=== PATIENT | male | born 1935 | race African-American/Black ===

== ENCOUNTER 2017-02-03 17:59 | Inpatient (IN) | payer OTHER ==
[2017-02-03] MEDS ORDERED: HumuLIN R SUBCUT PRN (20:07)
[2017-02-03] MEDS ORDERED: TEFLARO 400 MG in NS 50 ML IV 50 ML IV SCH (21:00)
[2017-02-03 21:01] LABS: BASOPHILS # (AUTO) 0.1 X10^3/uL (0.0-0.1); BASOPHILS % (AUTO) 0.4 % (0.2-1.0); EOSINOPHILS # (AUTO) 0.1 x10^3/uL (0.0-0.2); EOSINOPHILS % (AUTO) 0.4 % (0.9-2.9); HEMATOCRIT 31.4 % (42.0-54.0); HEMOGLOBIN 10.4 g/dL (13.5-18.0); LYMPHOCYTES # (AUTO) 1.4 X10^3/uL (1.3-2.9); LYMPHOCYTES % (AUTO) 7.8 % (21.0-51.0); MEAN CORPUSCULAR VOLUME 84.7 fL (80.0-100.0); MEAN PLATELET VOLUME 9.9 fL (7.4-11.0); MONOCYTES # (AUTO) 1.2 x10^3/uL (0.3-0.8); MONOCYTES % (AUTO) 6.5 % (0.0-13.0); NEUTROPHILS # (AUTO) 15.5 x10^3/uL (2.2-4.8); NEUTROPHILS % (AUTO) 84.9 % (42.0-75.0); PLATELET COUNT 327 X10^3/uL (150.0-450.0); RED BLOOD COUNT 3.71 X10^6/uL (4.7-6.0); RED CELL DISTRIBUTION WIDTH 15.5 % (11.6-16.5); WHITE BLOOD COUNT 18.3 X10^3/uL (3.6-10.0)
[2017-02-03 21:42] LABS: ALBUMIN 2.5 g/dL (3.4-5.0); CALCIUM 8.8 mg/dL (8.5-10.1); CARBON DIOXIDE 18.9 mmol/L (21-32); CKMB % 2.3 % (<4); CREATININE 2.99 mg/dL (0.70-1.30); TOTAL PROTEIN 8.4 g/dL (6.4-8.2); TROPONIN I 1.02 ng/mL (0-1.5)
[2017-02-03 21:45] LABS: CREATINE KINASE MB 4.9 ng/mL (0-4.0)
--- NOTE | 2017-02-03 22:21 | RAD ---
HISTORY: Renal failure Study: Single view chest Comparison: None Findings: Single portable supine view is submitted. Lung volumes are reduced. No infiltrate, effusion or pneumo thorax identified. The cardiac and mediastinal contours are within normal limits. The soft tissues a re unremarkable. IMPRESSION: 1. Negative portable chest radiograph. Reported By:
[2017-02-03] MEDS: NORCO 5/325 MG TAB PO PRN (22:49)
[2017-02-03] MEDS: LEVAQUIN PREMIX IV 250 MG 250 MG/50 ML BAG IV SCH (23:00)
[2017-02-03] MEDS: TEFLARO IV SCH (23:00)
[2017-02-03] MEDS: NS IV SCH (23:00)
[2017-02-03] MEDS: NS 1000 ML 1,000 ML IV SCH (23:01)
--- NOTE | 2017-02-03 23:09 | DR.H&P ---
H&P - History & Physical for Day of: H&P Date: 02/03/17 - Chief Complaint Chief Complaint: Decreased appetite. Devi brought to Clinic after instructed. - Allergies Allergies/Adverse Reactions: Allergies Allergy/AdvReac Type Severity Reaction Status Date / Time No Known Drug Allergies Allergy Verified 02/03/17 22:25 - History of Present Illness History of Present Illness: The patient is a 81yo BM who presents to [facility] with daughter. On previous day, Home Health Nurse had contacted office due to patient was altered and combative. Family refused to take to ED. Patient seen in the OP Therapy for his Epogen injection and nurses noted him to be altered and acting not baseline with his dementia. Labs drawn. WBC 17.8K, CR 2.6. Has been on Clindamycin. Daughter refused admission and brought the Clinic for evaluation. Patient is slightly altered. Daughter admits to decreased po intake. States his toe looks worse. States current treatment is to let it come off by itself. Daughter concerned about hospital admission due to has appt with Dr. Georges tomorrow for evaluation of PVD. Did finally agree for admission. - Past Medical History Past Medical History: Coronary Artery Disease, CVA, Dementia, Diabetes, Hypertension Additional Medical History: HIstory C Diff, PVD - Past Surgical History Additional Surgical History: Heart cath - Family History Family Medical History: Cancer (Ovarian) Family History Comment: Ovarian Cancer, CVA - Social History Does patient currently use any type of tobacco product: No Have you used tobacco products in the last 12 months: No Type of Tobacco Use: None Does any household member use tobacco: No Alcohol Use: None Drug Use: None - Review of Systems Constitutional: Weakness Eyes: No Symptoms Reported ENT: No Symptoms Reported Respiratory: No Symptoms Reported Cardiovascular: No Symptoms Reported Gastrointestinal: No Symptoms Reported Genitourinary: No Symptoms Reported Musculoskeletal: Foot Pain Skin: Wound (Left great toe) Neurological: Confusion Oriented: Person Eyes: Normal Ear: Normal Nose: Normal Throat: Normal Respiratory: Clear Throughout Cardiovascular: Normal : Normal Auscultation: Bowel Sounds: Normal Palpation: Normal Tenderness: Normal Skin: Wound (Left great toe necrotic, black, hard. OPen tunnel to base between Great toe and second digit. Malodorous.) Musculoskeletal: Foot, Swelling, Tender Psychiatric: Other (Restless) Mood Description: Withdrawn Affect: Quiet Speech Pattern: Clear - Assessment/Plan (1) Gangrene of toe of left foot Status: Acute Plan: IV Levaquin, Teflaro, Xray foot (2) Leukocytosis Status: Acute Plan: IV Levaquin, Teflaro, MOnitor CBC (3) Acute on chronic kidney failure Status: Acute (4) Diabetes Qualifiers: Diabetes mellitus type: type 2 Status: Acute Plan: MOnitor BS (5) PVD (peripheral vascular disease) Status: Acute
[2017-02-03 23:37] VITALS: BMI 25.5
[2017-02-04 03:20] LABS: CKMB % 2.1 % (<4); TROPONIN I 1.24 ng/mL (0-1.5)
[2017-02-04 03:26] LABS: CREATINE KINASE MB 4.5 ng/mL (0-4.0)
--- NOTE | 2017-02-04 06:07 | RAD ---
History: Gangrene of the left great toe Study: AP and oblique and lateral views of the left foot Comparison: None Findings: There is subcutaneous gas in the soft tissues around the great toe. There is no fracture or dislocation or bone erosion demonstrated. Impression: Gas gangrene of the left great toe, no evidence for osteomyelitis. Reported By:
[2017-02-04 06:36] LABS: BASOPHILS # (AUTO) 0.1 X10^3/uL (0.0-0.1); BASOPHILS % (AUTO) 0.4 % (0.2-1.0); EOSINOPHILS # (AUTO) 0.1 x10^3/uL (0.0-0.2); EOSINOPHILS % (AUTO) 0.9 % (0.9-2.9); HEMATOCRIT 30.7 % (42.0-54.0); HEMOGLOBIN 10.1 g/dL (13.5-18.0); LYMPHOCYTES # (AUTO) 1.6 X10^3/uL (1.3-2.9); LYMPHOCYTES % (AUTO) 10.8 % (21.0-51.0); MEAN CORPUSCULAR HGB CONC 32.8 g/dL (33.0-35.0); MEAN CORPUSCULAR VOLUME 85.2 fL (80.0-100.0); MEAN PLATELET VOLUME 10.3 fL (7.4-11.0); MONOCYTES # (AUTO) 0.9 x10^3/uL (0.3-0.8); MONOCYTES % (AUTO) 6.5 % (0.0-13.0); NEUTROPHILS # (AUTO) 11.7 x10^3/uL (2.2-4.8); NEUTROPHILS % (AUTO) 81.4 % (42.0-75.0); PLATELET COUNT 307 X10^3/uL (150.0-450.0); RED CELL DISTRIBUTION WIDTH 15.3 % (11.6-16.5); WHITE BLOOD COUNT 14.4 X10^3/uL (3.6-10.0)
[2017-02-04 06:49] LABS: ALANINE AMINOTRANSFERASE 12 Units/L (12-78); ALBUMIN 2.3 g/dL (3.4-5.0); ALKALINE PHOSPHATASE 70 Units/L (46-116); ASPARTATE AMINO TRANSFERASE 19 Units/L (15-37); BLOOD UREA NITROGEN 55 mg/dL (7-18); CALCIUM 8.5 mg/dL (8.5-10.1); CHLORIDE 103 mmol/L (98-107); COR CA(FOR HYPOALB) 9.9 mg/dL (8.5-10.1); SODIUM 135 mmol/L (136-145); eGFR BLACK RACES 26 (>60); eGFR NON BLACK RACES 22 (>60)
[2017-02-04] MEDS: LEVAQUIN PREMIX IV 250 MG 250 MG/50 ML BAG IV SCH (08:52)
[2017-02-04] MEDS: NS IV SCH ×3 (08:53→21:48)
[2017-02-04] MEDS: TEFLARO IV SCH ×3 (08:53→21:48)
[2017-02-04 10:06] LABS: CKMB % 2.3 % (<4); TROPONIN I 1.22 ng/mL (0-1.5)
[2017-02-04 10:12] LABS: CREATINE KINASE MB 4.2 ng/mL (0-4.0)
[2017-02-04] MEDS: SNACK - Diabetic Appropriate PO SCH ×2 (10:47→21:49)
[2017-02-04 11:15] LABS: BILIRUBIN,URINE NEGATIVE (NEGATIVE); BLOOD/HEMOGLOBIN,URINE 1+ (NEGATIVE); GLUCOSE, URINE NEGATIVE (NEGATIVE); KETONES,URINE NEGATIVE (NEGATIVE); LEUKOCYTE ESTERASE ,URINE NEGATIVE (NEGATIVE); NITRITES,URINE NEGATIVE (NEGATIVE); PROTEIN,URINE 2+ (NEGATIVE); UROBILINOGEN,URINE NORMAL (NORMAL)
[2017-02-04 11:56] LABS: APPEARANCE,URINE CLEAR (CLEAR); COLOR,URINE YELLOW (YELLOW); RBC,URINE RARE /HPF (NEGATIVE)
[2017-02-04 11:57] LABS: BACTERIA,URINE NEGATIVE /HPF (NEGATIVE); SQUAMOUS EPITHELIAL CELL,UR RARE /HPF (NEGATIVE)
[2017-02-04 11:58] LABS: AMORPHOUS SEDIMENT,UR TRACE /HPF (NEGATIVE)
[2017-02-04] MEDS: NS 1000 ML 1,000 ML IV SCH ×3 (13:18→23:04)
[2017-02-04] MEDS: NORCO 5/325 MG TAB PO PRN ×3 (14:29→23:50)
[2017-02-04] MEDS ORDERED: PATIENT'S HOME MEDICATION (Omeprazole [Omeprazole] 40 MG) PO SCH (21:30)
[2017-02-04] MEDS ORDERED: HYDRALAZINE HCL 50 MG PO SCH (21:30)
[2017-02-04] MEDS: NORVASC TAB 5 MG PO SCH (22:09)
[2017-02-04] MEDS: ASPIRIN EC 81 MG PO SCH (22:10)
[2017-02-04] MEDS: ARICEPT TAB 10 MG PO SCH (22:10)
[2017-02-04] MEDS: APRESOLINE TAB 25 MG PO SCH (22:10)
[2017-02-04] MEDS: COREG TAB 25 MG PO SCH (22:10)
[2017-02-04] MEDS: PriLOSEC PO SCH (22:10)
[2017-02-05] MEDS: AMARYL TAB 4 MG PO SCH (06:21)
[2017-02-05] MEDS ORDERED: PATIENT'S HOME MEDICATION (Ferrous Sulfate [Ferrous Sulfate] 325 MG) PO SCH (09:00)
[2017-02-05] MEDS ORDERED: PATIENT'S HOME MEDICATION (Glimepiride [Glimepiride 2 Mg] 2 MG) PO SCH (09:00)
[2017-02-05] MEDS: PriLOSEC PO SCH (09:29)
[2017-02-05] MEDS: TEFLARO IV SCH ×2 (09:29→21:31)
[2017-02-05] MEDS: APRESOLINE TAB 25 MG PO SCH ×2 (09:29→21:33)
[2017-02-05] MEDS: NS IV SCH ×2 (09:29→21:31)
[2017-02-05] MEDS: NORVASC TAB 5 MG PO SCH (09:29)
[2017-02-05] MEDS: ARICEPT TAB 10 MG PO SCH (09:30)
[2017-02-05] MEDS: COREG TAB 25 MG PO SCH ×2 (09:30→21:33)
[2017-02-05] MEDS: LEVAQUIN PREMIX IV 250 MG 250 MG/50 ML BAG IV SCH (09:30)
[2017-02-05] MEDS: ASPIRIN EC 81 MG PO SCH (09:30)
[2017-02-05] MEDS: HYDROCHLOROTHIAZIDE 12.5 MG CAP PO SCH (09:30)
[2017-02-05] MEDS: COZAAR PO SCH (09:30)
[2017-02-05] MEDS: NORCO 5/325 MG TAB PO PRN ×2 (09:39→21:32)
[2017-02-05] MEDS: PHENERGAN TAB 25 MG PO PRN ×2 (09:39→21:32)
[2017-02-05] MEDS: NS 1000 ML 1,000 ML IV SCH ×3 (09:39→22:48)
[2017-02-05 14:14] LABS: BASOPHILS # (AUTO) 0.1 X10^3/uL (0.0-0.1); BASOPHILS % (AUTO) 0.3 % (0.2-1.0); EOSINOPHILS # (AUTO) 0.1 x10^3/uL (0.0-0.2); EOSINOPHILS % (AUTO) 0.6 % (0.9-2.9); HEMATOCRIT 29.6 % (42.0-54.0); HEMOGLOBIN 9.7 g/dL (13.5-18.0); LYMPHOCYTES # (AUTO) 1.6 X10^3/uL (1.3-2.9); LYMPHOCYTES % (AUTO) 9.8 % (21.0-51.0); MEAN CORPUSCULAR HEMOGLOBIN 27.9 pg (27.0-34.0); MEAN CORPUSCULAR HGB CONC 32.9 g/dL (33.0-35.0); MEAN CORPUSCULAR VOLUME 84.8 fL (80.0-100.0); MEAN PLATELET VOLUME 9.6 fL (7.4-11.0); MONOCYTES # (AUTO) 1.3 x10^3/uL (0.3-0.8); NEUTROPHILS # (AUTO) 13.2 x10^3/uL (2.2-4.8); NEUTROPHILS % (AUTO) 81.3 % (42.0-75.0); PLATELET COUNT 275 X10^3/uL (150.0-450.0); RED BLOOD COUNT 3.49 X10^6/uL (4.7-6.0); RED CELL DISTRIBUTION WIDTH 15.4 % (11.6-16.5); WHITE BLOOD COUNT 16.3 X10^3/uL (3.6-10.0)
[2017-02-05 14:22] LABS: ALANINE AMINOTRANSFERASE 14 Units/L (12-78); ALBUMIN 2.2 g/dL (3.4-5.0); ALKALINE PHOSPHATASE 68 Units/L (46-116); ASPARTATE AMINO TRANSFERASE 16 Units/L (15-37); BLOOD UREA NITROGEN 48 mg/dL (7-18); CALCIUM 8.7 mg/dL (8.5-10.1); CARBON DIOXIDE 17.6 mmol/L (21-32); CHLORIDE 104 mmol/L (98-107); COR CA(FOR HYPOALB) 10.1 mg/dL (8.5-10.1); CREATININE 2.74 mg/dL (0.70-1.30); SODIUM 135 mmol/L (136-145); TOTAL PROTEIN 7.6 g/dL (6.4-8.2); eGFR BLACK RACES 29 (>60); eGFR NON BLACK RACES 24 (>60)
[2017-02-05] MEDS ORDERED: LIPITOR TAB 20 MG PO SCH (21:00)
[2017-02-05] MEDS: HEMOCYTE-PLUS PO SCH (21:32)
[2017-02-05] MEDS: SNACK - Diabetic Appropriate PO SCH (21:54)
[2017-02-06] MEDS: NS 1000 ML 1,000 ML IV SCH ×3 (05:58→16:23)
[2017-02-06] MEDS: AMARYL TAB 4 MG PO SCH (05:59)
[2017-02-06 07:16] LABS: BASOPHILS # (AUTO) 0.1 X10^3/uL (0.0-0.1); BASOPHILS % (AUTO) 0.6 % (0.2-1.0); EOSINOPHILS # (AUTO) 0.1 x10^3/uL (0.0-0.2); EOSINOPHILS % (AUTO) 0.7 % (0.9-2.9); HEMATOCRIT 27.6 % (42.0-54.0); LYMPHOCYTES # (AUTO) 1.1 X10^3/uL (1.3-2.9); MEAN CORPUSCULAR HEMOGLOBIN 27.8 pg (27.0-34.0); MEAN CORPUSCULAR HGB CONC 32.7 g/dL (33.0-35.0); MEAN CORPUSCULAR VOLUME 85.1 fL (80.0-100.0); MEAN PLATELET VOLUME 9.7 fL (7.4-11.0); MONOCYTES # (AUTO) 1.2 x10^3/uL (0.3-0.8); MONOCYTES % (AUTO) 7.2 % (0.0-13.0); NEUTROPHILS # (AUTO) 13.5 x10^3/uL (2.2-4.8); NEUTROPHILS % (AUTO) 84.5 % (42.0-75.0); PLATELET COUNT 276 X10^3/uL (150.0-450.0); RED BLOOD COUNT 3.24 X10^6/uL (4.7-6.0); RED CELL DISTRIBUTION WIDTH 15.3 % (11.6-16.5)
[2017-02-06 07:37] LABS: ALANINE AMINOTRANSFERASE 12 Units/L (12-78); ALBUMIN 1.9 g/dL (3.4-5.0); ALKALINE PHOSPHATASE 68 Units/L (46-116); ASPARTATE AMINO TRANSFERASE 12 Units/L (15-37); BLOOD UREA NITROGEN 49 mg/dL (7-18); CALCIUM 8.2 mg/dL (8.5-10.1); CARBON DIOXIDE 18.2 mmol/L (21-32); CHLORIDE 105 mmol/L (98-107); COR CA(FOR HYPOALB) 9.9 mg/dL (8.5-10.1); CREATININE 3.13 mg/dL (0.70-1.30); SODIUM 134 mmol/L (136-145); TOTAL PROTEIN 7.2 g/dL (6.4-8.2); eGFR BLACK RACES 25 (>60); eGFR NON BLACK RACES 21 (>60)
[2017-02-06] MEDS: NORVASC TAB 5 MG PO SCH (09:35)
[2017-02-06] MEDS: APRESOLINE TAB 25 MG PO SCH (09:35)
[2017-02-06] MEDS: COZAAR PO SCH (09:36)
[2017-02-06] MEDS: COREG TAB 25 MG PO SCH (09:37)
[2017-02-06] MEDS: HEMOCYTE-PLUS PO SCH (09:37)
[2017-02-06] MEDS: HYDROCHLOROTHIAZIDE 12.5 MG CAP PO SCH (09:38)
[2017-02-06] MEDS: ASPIRIN EC 81 MG PO SCH (09:38)
[2017-02-06] MEDS: TEFLARO IV SCH (09:38)
[2017-02-06] MEDS: PriLOSEC PO SCH (09:38)
[2017-02-06] MEDS: NS IV SCH (09:38)
[2017-02-06] MEDS: ARICEPT TAB 10 MG PO SCH (09:39)
[2017-02-06] MEDS: LEVAQUIN PREMIX IV 250 MG 250 MG/50 ML BAG IV SCH (09:39)
[2017-02-06] MEDS ORDERED: VANCOMYCIN HCL 1 GM VIAL 1 GM in D5W 250 ML IV 250 ML IV SCH (17:55)
[2017-02-06] MEDS ORDERED: VANCOMYCIN HCL 500 MG VIAL 750 MG in NS 250 ML IV 250 ML IV SCH (20:00)
[2017-02-06] MEDS: NORCO 5/325 MG TAB PO PRN (20:40)
[2017-02-06 23:00] VITALS: BP 162/70
[2017-02-07] MEDS ORDERED: LEVAQUIN PREMIX IV 250 MG 250 MG/50 ML BAG IV SCH (09:00)
[2017-02-07] MEDS ORDERED: LEVAQUIN PREMIX IV 500 MG 500 MG/100 ML BAG IV SCH (09:00)
== END 2017-02-06 20:55 | disposition short-term general hospital (02) | DRG 300 ==
LOC: OBSVTOIN 17:59 → MED/SURG 17:59
PROVIDERS: ADMIT Internal Medicine; ATTEND Internal Medicine
DX: I96 Gangrene, not elsewhere classified (principal); E11.52 Type 2 diabetes mellitus with diabetic peripheral angiopathy with gangrene; B95.62 Methicillin resistant Staphylococcus aureus infection as the cause of diseases classified elsewhere; B95.7 Other staphylococcus as the cause of diseases classified elsewhere; I25.10 Atherosclerotic heart disease of native coronary artery without angina pectoris; E11.65 Type 2 diabetes mellitus with hyperglycemia; I10 Essential (primary) hypertension; N17.8 Other acute kidney failure; D72.828 Other elevated white blood cell count; I73.89 Other specified peripheral vascular diseases
CPT/HCPCS: 36415; 71010; 73630; 80053; 81001; 82550; 82553; 83605; 84484; 85025; 87040; 87070; 87077; 87186; 87205; 93005; 93010; 94760; A4216; A4222; Q0169; J0712; J1815; J1956; J3370